=== PATIENT | male | born 1950 | race American Indian/Alaskan Native ===

== ENCOUNTER 2016-06-21 06:37 | Day surgery (SDC) | payer MEDICARE, OTHER ==
[2016-06-20 08:03] VITALS: BMI 31.4
[2016-06-21] MEDS ORDERED: Midazolam 2 MG/2 ML VIAL ONE (07:42)
[2016-06-21] MEDS ORDERED: Propofol 10 mg/ml Inj (20 ML) ONE (07:43)
[2016-06-21] MEDS ORDERED: ceFAZolin IV 2 gm in Dextrose 50 ML IVPB ONE ×2 (07:49→16:08)
[2016-06-21] MEDS ORDERED: Phenylephrine 10 mg/ml Inj ONE (08:08)
[2016-06-21] MEDS ORDERED: Succinylcholine Chloride 20 mg/ml Syr (5 ml) IV ONE (08:08)
[2016-06-21] MEDS ORDERED: Rocuronium 10 mg/ml (5 ml) ONE (08:08)
[2016-06-21] MEDS ORDERED: ePHEDrine 50 mg/ml Inj ONE (08:08)
[2016-06-21] MEDS ORDERED: Lidocaine Hydrochloride 5 ML INJ ONE (08:08)
[2016-06-21] MEDS ORDERED: Atropine Sulfate 0.4 mg/ml (0.8mg/2ml) Syringe IV ONE (08:08)
[2016-06-21] MEDS ORDERED: Lactated Ringer's 1,000 ML IV ONE ×2 (08:10→08:57)
[2016-06-21] MEDS ORDERED: White Petrolatum/Mineral Oil Ophth Oint(3.5 gm) ONE (08:28)
[2016-06-21] MEDS ORDERED: Morphine 4 MG/ML VIAL ONE (10:55)
[2016-06-21] MEDS ORDERED: HYDROmorphone 0.5 mg/0.5 ml ISec IVP PRN ×2 (11:00→12:15)
[2016-06-21] MEDS ORDERED: Lactated Ringer's 1,000 ML IV SCH (11:00)
[2016-06-21] MEDS ORDERED: Neostigmine Methylsulfate 3mg/3ml Syringe IV ONE (11:14)
[2016-06-21] MEDS ORDERED: Sodium Chloride 0.9% 500 ML IV ONE (11:30)
--- NOTE | 2016-06-21 12:08 | PCM.SURG1 ---
Surgeon's Initial Post Op Note - Surgeon's Notes Surgeon: Nisa Horton MD Combine Operator: Lou Gutiérrez PA-C Type of Anesthesia: General Endo Anesthesia Administered By: Dr. Hamilton Pre-Operative Diagnosis: Right lateral femoral condyle osteochondral defect. medial and lateral meniscal tears. chondromalacia trochlea Operative Findings: Tourniquet: 89 min @ 300mmHg Post-Operative Diagnosis: same Operation Performed: 1. Right knee open osteochondral allograft biologic unicompartmental knee transplant lateral femoral condyle. 2. Arthoscopic medial meniscal repair. 3. Arthroscopic partial lateral meniscectomy. 4. Open lateral retinacular release. 5. Microfracture trochlea Specimen/Specimens Removed: osteochondral lesion lateral femoral condyle Estimated Blood Loss: EBL {In ML}: 50 Blood Products Given: N/A Drains Used: No Drains Post-Op Condition: Fair Date of Surgery/Procedure: 06/21/16 Time of Surgery/Procedure: 12:15
[2016-06-21] MEDS ORDERED: Sodium Chloride 0.9% 1,000 ML IV SCH (12:15)
[2016-06-21] MEDS ORDERED: Bupivacaine 0.5% Inj(30mL) ONE (13:50)
--- NOTE | 2016-06-21 14:20 | PCM.ANESB7 ---
Adductor Canal Block - Adductor Canal Block Date of Procedure: 06/21/16 Anesthiologist: Leanne Pre-Procedure Diagnosis: s/p right knee surgery Procedure Performed: Adductor Canal Block Right - Procedure Adductor Canal Block: The procedure was explained to the patient that it is for the post-operative pain management. Consent was obtained after a thorough discussion with the patient regarding the benefits and possible complications of local anesthetic adductor canal block of the femoral nerve. Standard monitors, as defined by the ASA, were applied to the patient. Time-out was held with the circulating nurse to confirm the appropriate block. After applying supplemental oxygen and administering IV Sedation as needed, the patient was placed in supine position with and the operative leg was flexed slightly at the knee and externally rotated as needed, and was kept anatomically stable. The mid-thigh was exposed. The ultrasound transducer was then applied transversely along the medial aspect , about midway down the thigh and the femoral artery and vein were identified in appropriate relation with the sartorius muscle. At this time, the femoral nerve was visualized lateral to the femoral artery within the canal. After thorough identification, this area area was prepped with Chloroprep solution three times and 1 % Lidocaine was injected subcutaneously for topical anesthesia. At this point, a #22 gauge Stimuplex 4-inch needle was inserted in-plane in a [id number] orientation, and advanced toward the femoral nerve. Advancement was performed carefully under direct ultrasound visualization. After negative aspiration, _20__cc of __0.5___% ____bupivacaine was injected. Under ultrasound guidance the local anesthetics were observed spreading around the femoral nerve. The needle was removed intact and sterile dressing was applied. The patient had stable vital signs, was conscious and in no apparent distress. The patient tolerated the femoral nerve block well with stable vital signs and good pain relief from 09/21-04/23
[2016-06-21] MEDS ORDERED: Sodium Chloride 0.9% 1,000 ML IV ONE (15:00)
[2016-06-21] MEDS: ceFAZolin IV 2 gm in Dextrose 50 ML IVPB SCH (16:30)
[2016-06-21] MEDS: Oxycodone/Acetaminophen 5/325 mg Tab PO PRN (18:36)
[2016-06-22] MEDS: ceFAZolin IV 2 gm in Dextrose 50 ML IVPB SCH (00:25)
[2016-06-22 07:17] LABS: CHLORIDE 95 mmol/L (98-107); POTASSIUM 3.7 mmol/L (3.6-5.2); SODIUM 136 mmol/L (132-148)
[2016-06-22 07:20] LABS: BLOOD UREA NITROGEN 9 mg/dL (9-20); CALCIUM 8.4 mg/dl (8.6-10.4); CARBON DIOXIDE 28 mmol/L (22-30); GFR AFRICAN-AMERICAN > 60; GLUCOSE,RANDOM 205 mg/dL (75-110)
[2016-06-22 07:25] LABS: HEMATOCRIT 34.5 % (35.0-51.0); MEAN CELL VOLUME 85.2 fL (80.0-94.0); MEAN CORPUSCULAR HEMOGLOBIN 29.6 pg (27.0-31.0); MEAN CORPUSCULAR HGB CONC 34.7 g/dL (33.0-37.0); MEAN PLATELET VOLUME 8.2 fL (7.2-11.7); WHITE BLOOD COUNT 9.2 K/uL (4.8-10.8)
[2016-06-22 08:01] VITALS: BP 144/76; PULSE 76; RESP 17; TEMP 100; O2SAT 95
[2016-06-22] MEDS: Oxycodone/Acetaminophen 5/325 mg Tab PO PRN (09:30)
[2016-06-22] MEDS ORDERED: Pneumococcal 23-Valent Vaccine IM ONE (10:00)
[2016-06-22] MEDS ORDERED: Enoxaparin 40 mg Syringe SC SCH (10:00)
[2016-06-22] MEDS ORDERED: Influenza Virus Vaccine 45 mcg/0.5 ml Syr IM ONE (10:00)
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
== END 2016-06-22 14:15 | disposition home or self-care (01) ==
LOC: C.SDS 06:37 → C.6T 12:15 → C.SDS 06-22 14:15
PROVIDERS: ATTEND Internal Medicine Pulmonary Disease
DX: M17.11 Unilateral primary osteoarthritis, right knee (principal); M23.261 Derangement of other lateral meniscus due to old tear or injury, right knee; M23.231 Derangement of other medial meniscus due to old tear or injury, right knee; D16.21 Benign neoplasm of long bones of right lower limb; M65.861 Other synovitis and tenosynovitis, right lower leg; M94.261 Chondromalacia, right knee; M22.8X1 Other disorders of patella, right knee; M25.861 Other specified joint disorders, right knee; G89.18 Other acute postprocedural pain; Z23 Encounter for immunization; I10 Essential (primary) hypertension
CPT/HCPCS: 27415; 27425; 29880; 36415; 80048; 85027; 88305; 88311; 90732; 97110; 97116; 97162; C1776; G0008; G0009; G8978; G8979; J0171; J0690; J1170; J1650; J2250; J2270; J2370; J2405; J2704; J2710; J3010; J7030; J7040; J7120; Q2035